=== PATIENT | female | born 1970 | race Caucasian/White ===

== ENCOUNTER 2019-11-10 12:58 | Day surgery (SDC) | payer OTHER ==
[~2019-11-10] VITALS: Ht 170.2 cm; Wt 84.0 kg
[~2019-11-10 12:58] MED LIST: ALLEGRA ALLERGY60 MG PO; CYCL10 PO; DIAZ5 PO; FLUR100 PO; OXYACE5T PO
== END 2019-11-10 15:08 | disposition home or self-care (01) ==
LOC: ORSCSDS 12:58
PROVIDERS: Internal Medicine Gastroenterology
PROC: 0DJD8ZZ Inspection of Lower Intestinal Tract, Via Natural or Artificial Opening Endoscopic (ICD-10-PCS; principal; 2019-11-10 14:15)
DX: Z12.11 Encounter for screening for malignant neoplasm of colon (principal); F41.8 Other specified anxiety disorders; E66.9 Obesity, unspecified; Z68.30 Body mass index [BMI] 30.0-30.9, adult; Z79.899 Other long term (current) drug therapy
CPT/HCPCS: J2704; J7120